=== PATIENT | male | born 1985 | race Caucasian/White ===

== ENCOUNTER 2019-03-17 16:23 | Emergency (ER) | payer SELFPAY ==
[~2019-03-17] VITALS: Ht 185.4 cm; Wt 81.6 kg
[2019-03-17 16:33] VITALS: BP 123/83
[2019-03-17] MEDS ORDERED: PERMETHRIN60 GM TOPIC (16:35)
--- NOTE | 2019-03-17 16:36 | Emergency Room Report ---
History of Present Illness General Chief Complaint: Skin Rash/Abscess Source: Patient Present Illness HPI 34-year-old male presents with itchiness, diffuse body, no aggravating relieving factors severity is mild, patient was sent in for evaluation for bedbugs/lice, symptoms have been ongoing Allergies: Coded Allergies: No Known Allergies (Unverified , 03/17/19) Patient History Past Medical History: see triage record Reviewed Nursing Documentation: PMH: Agreed; PSxH: Agreed Nursing Documentation-PMH Past Medical History: No Stated History Review of Systems All Other Systems: negative except mentioned in HPI Physical Exam Vital Signs Date Time Temp Pulse Resp B/P (MAP) Pulse Ox O2 Delivery O2 Flow Rate FiO2 03/17/19 16:33 97.9 82 16 123/83 (96) 98 Room Air General Appearance: well appearing, no apparent distress Head: normocephalic, atraumatic ENT: hearing grossly normal, normal voice Neck: full range of motion, supple Respiratory: no respiratory distress, speaking full sentences Neurologic: alert, normal gait Psychiatric: mood/affect normal Skin: other - Excoriations on chest, around head, no obvious lice noted Medical Decision Making Diagnostic Impression: Primary Impression: Lice infested hair ER Course 34-year-old male presents with presumed lice will treat Disposition home with return precautions Disposition: HOME, SELF-CARE Condition: Stable Scripts Permethrin* (ELIMITE*) 60 Gm Cream..g. 1 APPLIC TOPIC ONCE, #180 GM 0 Refills Apply cream from head to toe; leave on for 8-14 hours before washing off with water; may reapply in 1 week if live mites appear. Prov: Pito Morales MD 03/17/19 Referrals: [facility]. [facility] Patient Instructions: Contact Precautions, [id number] Additional Instructions: The patient was provided with discharge instructions, notified to follow-up with a primary care doctor and or specialist in the next 24-48 hours, and to return to the ED if they have worsening of their symptoms. Please note that this report is being documented using DRAGON technology. This can lead to erroneous entry secondary to incorrect interpretation by the dictating instrument. Pito Morales MD Mar 17, 2019 16:36
--- NOTE | 2019-03-17 16:40 | NUR ---
ED Nurse Note: Patient walked into ED from home c/o itchiness on his head and all over the body. patient reports he may have lice or bed bugs. patient is a/o x4 ambulatory, breathing unlabored and even, speaking in full sentences. Dr Morales at bedside.
[2019-03-17 17:10] VITALS: BP 123/83
--- NOTE | 2019-03-17 17:10 | NUR ---
ER DISCHARGE NOTE: Patient is cleared to be discharged per ERMD DR CORTES, pt is aox4, on room air, with stable vital signs. pt was given dc and prescription instructions, pt was able to verbalize understanding, pt id band removed without complications. pt is able to ambulate with steady gait. pt took all belongings.
== END 2019-03-17 17:10 | disposition home or self-care (01) ==
LOC: EMR 17:09
DX: B85.0 Pediculosis due to Pediculus humanus capitis (principal)
CPT/HCPCS: 99282